=== PATIENT | female | born 1995 | race American Indian/Alaskan Native ===

== ENCOUNTER 2018-12-14 12:33 | Emergency (ER) | payer OTHER ==
[2018-12-14 12:47] VITALS: BP 133/82
--- NOTE | 2018-12-14 12:48 | Event Note ---
Date: 12/14/18 23 y.o aaf presents to ER with 6 weeks h/o periumbilical abdominal pain, nausea and vomiting. Pain is intermittent, 5/10, sharp, cramping, and worse when she is on her menstrual cycle. Has not yet seen any provider for her symptoms. Travel to [facility] and returned on november 27. no chest pain or sob. no fever, chills, night sweats, weight loss or diarrhea. The initial assessment/diagnostic orders/clinical plan/treatment(s) is/are subject to change based on patient's health status,clinical progression and re- assessment by fellow clinical providers in the ED. Further treatment and workup at subsequent clinical providers discretion. Patient/guardian urged not to elope from the ED as their condition may be serious if not clinically assessed and managed.
[2018-12-14] MEDS ORDERED: ZOFRAN ODT PO ONE (13:25)
[2018-12-14] MEDS ORDERED: NORCO 5/325 PO ONE (13:25)
[2018-12-14] MEDS ORDERED: TORADOL IM STA (13:25)
[2018-12-14 13:27] LABS: Hematocrit 37.9 % (30.3-42.9); Hemoglobin 12.8 gm/dl (10.1-14.3); Mean Corpuscular Volume 92 fl (79-97); Red Blood Count 4.13 M/mm3 (3.65-5.03)
[2018-12-14 13:28] LABS: Basophils % (Auto) 0.6 % (0.0-1.8); Eosinophils # (Auto) 0.1 K/mm3 (0.0-0.4); Eosinophils % (Auto) 1.8 % (0.0-4.3); Lymphocytes # (Auto) 2.8 K/mm3 (1.2-5.4); Lymphocytes % (Auto) 51.6 % (13.4-35.0); Mean Corpuscular HGB Conc 34 % (30-34); Monocytes # (Auto) 0.5 K/mm3 (0.0-0.8); Monocytes % (Auto) 9.5 % (0.0-7.3); Platelet Count 333 K/mm3 (140-440); Red Cell Distribution Width 15.3 % (13.2-15.2)
[2018-12-14 13:29] LABS: Mean Platelet Volume 7.9 fl (6-12)
--- NOTE | 2018-12-14 13:31 | Emergency Department Report ---
ED Abdominal Pain HPI - General Chief Complaint: Abdominal Pain Stated Complaint: ABD PAIN Time Seen by Provider: 12/14/18 13:25 Source: patient Mode of arrival: Ambulatory Limitations: No Limitations - History of Present Illness Initial Comments: Gogo is a 23-year-old healthy female who presents with severe menstrual pelvic region cramping. 9/10 in severity despite Tylenol and Goody's powder. This is normal timing for her menstrual cycle. She has not missed any periods. She only has sexual intercourse with females. She did drink copious amount of alcohol last night. MD Complaint: abdominal pain Location: suprapubic Radiation: RUQ Severity: moderate, severe Severity scale (0 -10): 9 Quality: cramping Consistency: constant Improves With: nothing Worsens With: nothing Associated Symptoms: vomiting - Related Data Previous Rx's Medication Instructions Recorded Last Taken Type 21/Iron Fu/Folic Acid 1 each PO DAILY #30 tablet 04/21/18 Unknown Rx [ Complete Caplet] HYDROcodone/APAP 5-325 [[place] 1 each PO Q6HR PRN #10 tablet 12/14/18 Unknown Rx 5/325] Ibuprofen [Motrin 800 MG tab] 800 mg PO Q8HR PRN #10 tablet 12/14/18 Unknown Rx Promethazine [Phenergan] 25 mg PO Q6HR PRN #10 tab 12/14/18 Unknown Rx Allergies Allergy/AdvReac Type Severity Reaction Status Date / Time No Known Allergies Allergy Unverified 04/21/18 10:53 ED Review of Systems ROS: Stated complaint: ABD PAIN Other details as noted in HPI Comment: All other systems reviewed and negative Constitutional: denies: fever, malaise Gastrointestinal: abdominal pain, nausea, vomiting ED Past Medical Hx - Past Medical History Previous Medical History?: No - Surgical History Past Surgical History?: No - Social History Smoking Status: Never Smoker Substance Use Type: Alcohol - Medications Home Medications: Home Medications Medication Instructions Recorded Confirmed Last Taken Type 21/Iron Fu/Folic Acid 1 each PO DAILY #30 tablet 04/21/18 Unknown Rx [ Complete Caplet] HYDROcodone/APAP 5-325 [[place] 1 each PO Q6HR PRN #10 tablet 12/14/18 Unknown Rx 5/325] Ibuprofen [Motrin 800 MG tab] 800 mg PO Q8HR PRN #10 tablet 12/14/18 Unknown Rx Promethazine [Phenergan] 25 mg PO Q6HR PRN #10 tab 12/14/18 Unknown Rx ED Physical Exam - General Limitations: No Limitations General appearance: alert, in no apparent distress - Head Head exam: Present: atraumatic, normocephalic - Eye Eye exam: Present: normal appearance - ENT ENT exam: Present: mucous membranes moist - Neck Neck exam: Present: normal inspection, full ROM - Respiratory Respiratory exam: Present: normal lung sounds bilaterally. Absent: respiratory distress, wheezes, rales, rhonchi - Cardiovascular Cardiovascular Exam: Present: regular rate, normal rhythm, normal heart sounds. Absent: systolic murmur, diastolic murmur, rubs, gallop - GI/Abdominal GI/Abdominal exam: Present: soft, normal bowel sounds. Absent: distended, tenderness, guarding, rebound - Extremities Exam Extremities exam: Present: normal inspection - Back Exam Back exam: Present: normal inspection - Neurological Exam Neurological exam: Present: alert, oriented X3 - Psychiatric Psychiatric exam: Present: normal affect, normal mood - Skin Skin exam: Present: warm, dry, intact, normal color. Absent: rash ED Course Vital Signs 12/14/18 12:45 Temperature 98.1 F Pulse Rate 49 L Respiratory 18 Rate Blood Pressure 133/82 O2 Sat by Pulse 100 Oximetry ED Medical Decision Making - Medical Decision Making Abdominal pelvic pain clinical impression dysmenorrhea no indication of peritonitis. I am not concerned at this time for appendicitis or ovarian torsion are PID Gogo received return precautions. She was prescribed [place] promethazine. Critical care attestation.: If time is entered above; I have spent that time in minutes in the direct care of this critically ill patient, excluding procedure time. ED Disposition Clinical Impression: Dysmenorrhea, Acute abdominal pain Disposition: DC-01 TO HOME OR SELFCARE Is pt being admited?: No Does the pt Need Aspirin: No Condition: Stable Instructions: Abdominal Pain (ED), Dysmenorrhea (ED) Prescriptions: Ibuprofen [Motrin 800 MG tab] 800 mg PO Q8HR PRN #10 tablet PRN Reason: Pain , Severe (7-10) HYDROcodone/APAP 5-325 [[place] 5/325] 1 each PO Q6HR PRN #10 tablet PRN Reason: Pain Promethazine [Phenergan] 25 mg PO Q6HR PRN #10 tab PRN Reason: Nausea
[2018-12-14 13:39] LABS: Alanine Aminotransferase 28 units/L (7-56); Albumin 4.2 g/dL (3.9-5); BUN/Creatinine Ratio 13; Blood Urea Nitrogen 10 mg/dL (7-17); Hemolysis Index 10
[2018-12-14 13:41] LABS: Bilirubin,Direct < 0.2 mg/dL (0-0.2)
== END 2018-12-14 14:35 | disposition home or self-care (01) ==
LOC: ED 12:33
DX: N94.6 Dysmenorrhea, unspecified (principal); Z79.899 Other long term (current) drug therapy
CPT/HCPCS: 36415; 80048; 80076; 82150; 83690; 85025; 96372; 99283; J1885; Q0162

== ENCOUNTER 2018-12-29 13:58 | Emergency (ER) | payer OTHER ==
--- NOTE | 2018-12-29 14:16 | Emergency Department Report ---
Blank Doc - Documentation Documentation: This is a 23-year-old female that presents with upper abdominal pain with naus ea. Denies any vomiting. This initial assessment/diagnostic orders/clinical plan/treatment(s) is/are subject to change based on patient's health status, clinical progression and re- assessment by fellow clinical providers in the ED. Further treatment and workup at subsequent clinical providers discretion. Patient/guardians urged not to elope from the ED as their condition may be serious if not clinically assessed and managed. Initial orders include: 1- Patient sent to [facility] for further evaluation and treatment 2- labs 3- UA
[2018-12-29 14:18] VITALS: BP 102/72
[2018-12-29 14:47] LABS: Hematocrit 40.5 % (30.3-42.9); Hemoglobin 13.6 gm/dl (10.1-14.3); Mean Corpuscular HGB Conc 34 % (30-34); Mean Corpuscular Volume 91 fl (79-97); Platelet Count 258 K/mm3 (140-440); Red Blood Count 4.46 M/mm3 (3.65-5.03); Red Cell Distribution Width 14.4 % (13.2-15.2)
[2018-12-29 15:10] LABS: Alanine Aminotransferase 24 units/L (7-56); Albumin 4.4 g/dL (3.9-5); BUN/Creatinine Ratio 15; Blood Urea Nitrogen 12 mg/dL (7-17); Calcium 9.2 mg/dL (8.4-10.2); Hemolysis Index 4
[2018-12-29 15:36] LABS: Basophils % (Manual) 0 % (0.0-1.8); Total Cells Counted 100
[2018-12-29 15:37] LABS: Large Platelets Few; Platelet Estimate Consistent w Auto; RBC Morphology Normal
--- NOTE | 2018-12-29 15:56 | Emergency Department Report ---
ED Abdominal Pain HPI - General Chief Complaint: Abdominal Pain Stated Complaint: ABD PAIN Time Seen by Provider: 12/29/18 14:15 Source: patient Mode of arrival: Ambulatory Limitations: No Limitations - History of Present Illness Initial Comments: Patient is a 23-year-old Female who's had intermittent abdominal pain for last 3 weeks. Patient states pain is mostly in the epigastrium. Patient has nausea but no vomiting. Is been no diarrhea or constipation. Patient denies fevers chills cough cold or congestion. Patient states that she's had decreased appetite but when she does eat sometimes pain does get better. Patient states the pain is worse with night as well. MD Complaint: abdominal pain - Related Data Previous Rx's Medication Instructions Recorded Last Taken Type 21/Iron Fu/Folic Acid 1 each PO DAILY #30 tablet 04/21/18 Unknown Rx [ Complete Caplet] HYDROcodone/APAP 5-325 [[place] 1 each PO Q6HR PRN #10 tablet 12/14/18 Unknown Rx 5/325] Ibuprofen [Motrin 800 MG tab] 800 mg PO Q8HR PRN #10 tablet 12/14/18 Unknown Rx Promethazine [Phenergan] 25 mg PO Q6HR PRN #10 tab 12/14/18 Unknown Rx Ondansetron [Zofran Odt] 4 mg PO Q8HR #10 tab.rapdis 12/29/18 Unknown Rx Pantoprazole [Protonix] 40 mg PO QDAY #30 tablet 12/29/18 Unknown Rx Allergies Allergy/AdvReac Type Severity Reaction Status Date / Time No Known Allergies Allergy Unverified 04/21/18 10:53 ED Review of Systems ROS: Stated complaint: ABD PAIN Other details as noted in HPI Comment: All other systems reviewed and negative ED Past Medical Hx - Past Medical History Previous Medical History?: No - Surgical History Past Surgical History?: No - Social History Smoking Status: Never Smoker Substance Use Type: Marijuana - Medications Home Medications: Home Medications Medication Instructions Recorded Confirmed Last Taken Type 21/Iron Fu/Folic Acid 1 each PO DAILY #30 tablet 04/21/18 Unknown Rx [ Complete Caplet] HYDROcodone/APAP 5-325 [[place] 1 each PO Q6HR PRN #10 tablet 12/14/18 Unknown Rx 5/325] Ibuprofen [Motrin 800 MG tab] 800 mg PO Q8HR PRN #10 tablet 12/14/18 Unknown Rx Promethazine [Phenergan] 25 mg PO Q6HR PRN #10 tab 12/14/18 Unknown Rx Ondansetron [Zofran Odt] 4 mg PO Q8HR #10 tab.rapdis 12/29/18 Unknown Rx Pantoprazole [Protonix] 40 mg PO QDAY #30 tablet 12/29/18 Unknown Rx ED Physical Exam - General Limitations: No Limitations General appearance: alert, in no apparent distress - Head Head exam: Present: atraumatic, normocephalic - Eye Eye exam: Present: normal appearance - ENT ENT exam: Present: mucous membranes moist - Neck Neck exam: Present: normal inspection - Respiratory Respiratory exam: Present: normal lung sounds bilaterally. Absent: respiratory distress, wheezes, rales, rhonchi - Cardiovascular Cardiovascular Exam: Present: regular rate, normal rhythm, normal heart sounds. Absent: systolic murmur, diastolic murmur, rubs, gallop - GI/Abdominal GI/Abdominal exam: Present: soft, tenderness (epigastric), normal bowel sounds. Absent: distended, guarding, rebound, rigid, diminished bowel sounds, organomegaly - Extremities Exam Extremities exam: Present: normal inspection - Back Exam Back exam: Present: normal inspection - Neurological Exam Neurological exam: Present: alert, oriented X3 - Psychiatric Psychiatric exam: Present: normal affect, normal mood - Skin Skin exam: Present: warm, dry, intact, normal color. Absent: rash ED Course Vital Signs 12/29/18 14:16 Temperature 98.5 F Pulse Rate 71 Respiratory 18 Rate Blood Pressure 102/72 O2 Sat by Pulse 100 Oximetry ED Medical Decision Making - Lab Data Result diagrams: 12/29/18 14:29 12/29/18 14:29 Lab Results 12/29/18 12/29/18 12/29/18 Range/Units 14:29 14:29 14:29 WBC 5.3 (4.5-11.0) K/mm3 RBC 4.46 (3.65-5.03) M/mm3 Hgb 13.6 (10.1-14.3) gm/dl Hct 40.5 (30.3-42.9) % MCV 91 (79-97) fl MCH 31 (28-32) pg MCHC 34 (30-34) % RDW 14.4 (13.2-15.2) % Plt Count 258 (140-440) K/mm3 Lymph % (Auto) Pre Sales Network Engineer Add Manual Diff Complete Total Counted 100 Seg Neutrophils % Pre Sales Network Engineer Seg Neuts % (Manual) 22.0 L (40.0-70.0) % Band Neutrophils % 0 % Lymphocytes % (Manual) 59.0 H (13.4-35.0) % Reactive Lymphs % (Man) 4.0 % Monocytes % (Manual) 13.0 H (0.0-7.3) % Eosinophils % (Manual) 2.0 (0.0-4.3) % Basophils % (Manual) 0 (0.0-1.8) % Metamyelocytes % 0 % Myelocytes % 0 % Promyelocytes % 0 % Blast Cells % 0 % Nucleated RBC % Not Reportable Seg Neutrophils # Man 1.2 L (1.8-7.7) K/mm3 Band Neutrophils # 0.0 K/mm3 Lymphocytes # (Manual) 3.1 (1.2-5.4) K/mm3 Abs React Lymphs (Man) 0.2 K/mm3 Monocytes # (Manual) 0.7 (0.0-0.8) K/mm3 Eosinophils # (Manual) 0.1 (0.0-0.4) K/mm3 Basophils # (Manual) 0.0 (0.0-0.1) K/mm3 Metamyelocytes # 0.0 K/mm3 Myelocytes # 0.0 K/mm3 Promyelocytes # 0.0 K/mm3 Blast Cells # 0.0 K/mm3 WBC Morphology Not Reportable Hypersegmented Neuts Not Reportable Hyposegmented Neuts Not Reportable Hypogranular Neuts Not Reportable Smudge Cells Not Reportable Toxic Granulation Not Reportable Toxic Vacuolation Not Reportable Dohle Bodies Not Reportable Pelger-Huet Anomaly Not Reportable Angel Rods Not Reportable Platelet Estimate Consistent w auto Clumped Platelets Not Reportable Plt Clumps, EDTA Not Reportable Large Platelets Few Giant Platelets Not Reportable Platelet Satelliting Not Reportable Plt Morphology Comment Not Reportable RBC Morphology Normal Dimorphic RBCs Not Reportable Polychromasia Not Reportable Hypochromasia Not Reportable Poikilocytosis Not Reportable Anisocytosis Not Reportable Microcytosis Not Reportable Macrocytosis Not Reportable Spherocytes Not Reportable Pappenheimer Bodies Not Reportable Sickle Cells Not Reportable Target Cells Not Reportable Tear Drop Cells Not Reportable Ovalocytes Not Reportable Helmet Cells Not Reportable [place] Bodies Not Reportable [place] Rings Not Reportable Jazmyn Cells Not Reportable Bite Cells Not Reportable Crenated Cell Not Reportable Elliptocytes Not Reportable Acanthocytes (Spur) Not Reportable Rouleaux Not Reportable Hemoglobin C Crystals Not Reportable Schistocytes Not Reportable Malaria parasites Not Reportable King Bodies Not Reportable Hem Pathologist Commnt No Sodium 138 (137-145) mmol/L Potassium 3.7 (3.6-5.0) mmol/L Chloride 103.6 (98-107) mmol/L Carbon Dioxide 24 (22-30) mmol/L Anion Gap 14 mmol/L BUN 12 (7-17) mg/dL Creatinine 0.8 (0.7-1.2) mg/dL Estimated GFR > 60 ml/min BUN/Creatinine Ratio 15 % Glucose 87 (65-100) mg/dL Calcium 9.2 (8.4-10.2) mg/dL Total Bilirubin 0.30 (0.1-1.2) mg/dL AST 26 (5-40) units/L ALT 24 (7-56) units/L Alkaline Phosphatase 41 (35-129) units/L Total Protein 7.4 (6.3-8.2) g/dL Albumin 4.4 (3.9-5) g/dL Albumin/Globulin Ratio 1.5 % HCG, Qual Negative (Negative) - Medical Decision Making Patient's laboratory studies are unremarkable. Patient likely has peptic ulcer disease. Patient started on Protonix and Zofran and will be followed up with [facility]. Patient discharged home in stable condition. Critical care attestation.: If time is entered above; I have spent that time in minutes in the direct care of this critically ill patient, excluding procedure time. ED Disposition Clinical Impression: PUD (peptic ulcer disease) Abdominal pain Qualifiers: Abdominal location: epigastric Qualified Code(s): R10.13 - Epigastric pain Disposition: DC-01 TO HOME OR SELFCARE Is pt being admited?: No Does the pt Need Aspirin: No Condition: Stable Instructions: Abdominal Pain (ED) Referrals: [facility] [Provider Group] - 3-5 Days Time of Disposition: 15:56
== END 2018-12-29 16:12 | disposition home or self-care (01) ==
LOC: ED 13:58
DX: K27.9 Peptic ulcer, site unspecified, unspecified as acute or chronic, without hemorrhage or perforation (principal); F12.90 Cannabis use, unspecified, uncomplicated; Z79.899 Other long term (current) drug therapy
CPT/HCPCS: 36415; 80053; 84703; 85007; 85025; 99283

== ENCOUNTER 2019-07-07 21:32 | Emergency (ER) | payer OTHER ==
[2019-07-07 21:45] VITALS: BP 142/70
== END 2019-07-07 22:20 | disposition left against medical advice (07) ==
LOC: ED 21:32
DX: R10.9 Unspecified abdominal pain (principal); Z53.21 Procedure and treatment not carried out due to patient leaving prior to being seen by health care provider

== ENCOUNTER 2020-07-22 02:01 | Emergency (ER) | payer OTHER ==
[2020-07-22 03:13] VITALS: BP 136/75
[2020-07-22 04:21] LABS: Mucus,Urine FEW /HPF
[2020-07-22 04:22] LABS: RBC,Urine > 182.0 /HPF (0.0-6.0); WBC,Urine > 182.0 /HPF (0.0-6.0)
[2020-07-22 04:25] LABS: HCG Qualitative,Urine Negative (Negative)
[2020-07-22 04:30] LABS: Bilirubin,Urine NEG (Negative); Blood,Urine LG (Negative); Color,Urine Red (Yellow)
[2020-07-22] MEDS ORDERED: KETOROLAC 60 MG/2 ML INJ IM ONE (04:42)
--- NOTE | 2020-07-22 04:50 | Emergency Department Report ---
ED Abdominal Pain HPI - General Chief Complaint: Abdominal Pain Stated Complaint: ABD PAIN Time Seen by Provider: 07/22/20 04:13 Source: patient, EMS Mode of arrival: Stretcher Limitations: No Limitations - History of Present Illness Initial Comments: Patient is 25 years old female with no past medical history. Patient presented to the ER complaining of suprapubic abdominal pain, crampy in nature with no radiation. Patient stated that her menstrual cycle started 4 days ago. Patient stated that she has similar symptoms before with her menstrual cycle. Patient denied any fever or chills. No nausea or vomiting or diarrhea. MD Complaint: abdominal pain -: days(s) Location: suprapubic Radiation: none Migration to: no migration Severity scale (0 -10): 6 Quality: sharp Consistency: intermittent - Related Data Previous Rx's Medication Instructions Recorded Last Taken Type 21/Iron Fu/Folic Acid 1 each PO DAILY #30 tablet 04/21/18 Unknown Rx [ Complete Caplet] HYDROcodone/APAP 5-325 [[place] 1 each PO Q6HR PRN #10 tablet 12/14/18 Unknown Rx 5/325] Ibuprofen [Motrin 800 MG tab] 800 mg PO Q8HR PRN #10 tablet 12/14/18 Unknown Rx Promethazine [Phenergan] 25 mg PO Q6HR PRN #10 tab 12/14/18 Unknown Rx Ondansetron [Zofran Odt] 4 mg PO Q8HR #10 tab.rapdis 12/29/18 Unknown Rx Pantoprazole [Protonix] 40 mg PO QDAY #30 tablet 12/29/18 Unknown Rx Ciprofloxacin HCl 500 mg PO BID #14 tablet 07/22/20 Unknown Rx Naproxen [Naprosyn] 500 mg PO BID #14 tablet 07/22/20 Unknown Rx Allergies Allergy/AdvReac Type Severity Reaction Status Date / Time No Known Allergies Allergy Verified 07/07/19 21:42 ED Review of Systems ROS: Stated complaint: ABD PAIN Other details as noted in HPI Comment: All other systems reviewed and negative Constitutional: denies: chills, fever Respiratory: denies: cough, shortness of breath, SOB with exertion Cardiovascular: denies: chest pain Gastrointestinal: abdominal pain. denies: nausea, vomiting, diarrhea, constipation, hematemesis, melena, hematochezia Genitourinary: dysuria, abnormal menses. denies: frequency, hematuria Neurological: denies: headache, weakness ED Past Medical Hx - Past Medical History Previous Medical History?: Yes Additional medical history: chronic abdominal pain - Social History Smoking Status: Current Every Day Smoker - Medications Home Medications: Home Medications Medication Instructions Recorded Confirmed Last Taken Type 21/Iron Fu/Folic Acid 1 each PO DAILY #30 tablet 04/21/18 Unknown Rx [ Complete Caplet] HYDROcodone/APAP 5-325 [[place] 1 each PO Q6HR PRN #10 tablet 12/14/18 Unknown Rx 5/325] Ibuprofen [Motrin 800 MG tab] 800 mg PO Q8HR PRN #10 tablet 12/14/18 Unknown Rx Promethazine [Phenergan] 25 mg PO Q6HR PRN #10 tab 12/14/18 Unknown Rx Ondansetron [Zofran Odt] 4 mg PO Q8HR #10 tab.rapdis 12/29/18 Unknown Rx Pantoprazole [Protonix] 40 mg PO QDAY #30 tablet 12/29/18 Unknown Rx Ciprofloxacin HCl 500 mg PO BID #14 tablet 07/22/20 Unknown Rx Naproxen [Naprosyn] 500 mg PO BID #14 tablet 07/22/20 Unknown Rx ED Physical Exam - General Limitations: No Limitations General appearance: alert, in no apparent distress - Head Head exam: Present: atraumatic, normocephalic, normal inspection - Eye Eye exam: Present: normal appearance, PERRL - ENT ENT exam: Present: normal orophraynx - Neck Neck exam: Present: normal inspection, full ROM. Absent: tenderness, meningismus - Respiratory Respiratory exam: Present: normal lung sounds bilaterally - Cardiovascular Cardiovascular Exam: Present: regular rate, normal rhythm, normal heart sounds - GI/Abdominal GI/Abdominal exam: Present: soft, normal bowel sounds. Absent: distended, tenderness, guarding, rebound, rigid, organomegaly, mass, bruit, pulsatile mass, hernia - Extremities Exam Extremities exam: Present: normal inspection, full ROM, normal capillary refill - Back Exam Back exam: Present: normal inspection, full ROM. Absent: CVA tenderness (R), CVA tenderness (L) - Neurological Exam Neurological exam: Present: alert, oriented X3, CN II-XII intact, normal gait, reflexes normal. Absent: motor sensory deficit - Psychiatric Psychiatric exam: Present: normal mood - Skin Skin exam: Present: warm, intact, normal color ED Course Vital Signs 07/22/20 03:12 Temperature 98.9 F Pulse Rate 94 H Respiratory 16 Rate Blood Pressure 136/75 O2 Sat by Pulse 99 Oximetry ED Medical Decision Making - Lab Data Result diagrams: 07/22/20 04:45 07/22/20 04:45 - Medical Decision Making Patient is 25 years old female with no past medical history. Patient presented to the ER complaining of suprapubic abdominal pain, crampy in nature with no radiation. Patient stated that her menstrual cycle started 4 days ago. Patient stated that she has similar symptoms before with her menstrual cycle. Patient denied any fever or chills. No nausea or vomiting or diarrhea. Labs reviewed and is unremarkable. Patient received Toradol 60 IM and stated that her symptoms is much better. Patient stated that she is feeling much better. Patient advised to follow-up with her primary doctor in the next 2 to 3 days and to return to if symptoms are not improved or he develop new symptoms Critical care attestation.: If time is entered above; I have spent that time in minutes in the direct care of this critically ill patient, excluding procedure time. ED Disposition Clinical Impression: Abdominal pain, Dysmenorrhea, UTI (urinary tract infection) Disposition: DC-01 TO HOME OR SELFCARE Is pt being admited?: No Condition: Stable Instructions: Abdominal Pain (ED), Urinary Tract Infection, Adult, Dysmenorrhea, [id number], Abdominal Pain, Adult, [id number] Prescriptions: Ciprofloxacin HCl 500 mg PO BID #14 tablet Naproxen [Naprosyn] 500 mg PO BID #14 tablet Referrals: PRIMARY CARE, [Primary Care Provider] - 3-5 Days
[2020-07-22 05:03] LABS: Basophils % (Auto) 0.3 % (0.0-1.8); Eosinophils % (Auto) 0.7 % (0.0-4.3); Hematocrit 35.3 % (30.3-42.9); Hemoglobin 12.1 gm/dl (10.1-14.3); Lymphocytes # (Auto) 1.6 K/mm3 (1.2-5.4); Lymphocytes % (Auto) 28.5 % (13.4-35.0); Mean Corpuscular HGB Conc 34 % (30-34); Mean Corpuscular Volume 95 fl (79-97); Monocytes # (Auto) 0.7 K/mm3 (0.0-0.8); Monocytes % (Auto) 12.6 % (0.0-7.3); Platelet Count 285 K/mm3 (140-440); Red Blood Count 3.74 M/mm3 (3.65-5.03); Red Cell Distribution Width 14.9 % (13.2-15.2)
[2020-07-22 05:52] LABS: Blood Urea Nitrogen 7 mg/dL (7-17); Calcium 9.1 mg/dL (8.4-10.2); Hemolysis Index 1
[2020-07-22 06:09] LABS: BUN/Creatinine Ratio 10
== END 2020-07-22 06:05 | disposition home or self-care (01) ==
LOC: ED 02:01
DX: N39.0 Urinary tract infection, site not specified (principal); N94.6 Dysmenorrhea, unspecified; R10.2 Pelvic and perineal pain; F17.200 Nicotine dependence, unspecified, uncomplicated; Z79.1 Long term (current) use of non-steroidal anti-inflammatories (NSAID); Z79.2 Long term (current) use of antibiotics; Z79.899 Other long term (current) drug therapy
CPT/HCPCS: 36415; 80048; 81001; 81025; 85025; 96372; 99284; J1885